=== PATIENT | female | born 2000 | race Caucasian/White ===

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

== ENCOUNTER 2023-01-28 07:57 | Emergency (ER) | payer OTHER ==
[~2023-01-28] VITALS: Ht 165.1 cm; Wt 61.2 kg
[~2023-01-28 07:57] MED LIST: ISENTRESS400 MG PO; TRUVADA 200 MG1 EACH PO; ZOFRAN4 MG PO
[2023-01-28] MEDS ORDERED: PROPRANOLOL HCL10 MG PO (08:10)
[2023-01-28 08:35] LABS: BILIRUBIN, URINE NEGATIVE (negative); BLOOD/HGB, URINE SMALL (Negative); KETONE, URINE NEGATIVE (Negative); LEUK ESTERASE, URINE TRACE (negative); NITRITE, URINE NEGATIVE (negative)
[2023-01-28 08:43] LABS: BACTERIA, URINE 1+ /hpf (negative); CASTS, URINE NONE SEEN \\lpf; COLLECTION TYPE, URINE CLEAN CATCH; CRYSTALS, URINE NONE SEEN (0-1+); EPITHELIAL CELLS, URINE SQUAMOUS 3+ /lpf (0-1+); RED BLOOD CELLS, URINE 0-1 /hpf (0-5); REFLEX CULTURE, URINE No (No)
[2023-01-28 08:45] LABS: BASOPHILS 0.9 % (0-2); EOSINOPHILS 2.5 % (0-6); HEMATOCRIT 36.3 % (35.0-50.0); HEMOGLOBIN 12.2 g/dL (12.0-18.0); LYMPHOCYTES 28.4 % (24-44); MCHC 33.6 g/dl (30-36); MCV 86.3 fl (81-99); MONOCYTES 10.5 % (0-12); NEUTROPHILS 57.7 % (39-80); PLATELET COUNT 190 K/uL (140-440); RDW 12.8 (10.5-15.0)
[2023-01-28 09:04] LABS: ALBUMIN 3.7 g/dL (3.4-5.0); ALBUMIN/GLOBULIN RATIO 1.19 (1.1-2.4); ANION GAP 16.5 (7-21); BILIRUBIN, TOTAL 0.2 ng/dL (0.2-1.0); BUN/CREATININE RATIO 8.92 (6.0-28.6); CREATININE, SERUM 0.56 mg/dL (0.55-1.02); POTASSIUM 3.5 mmol/L (3.5-5.1); PROTEIN, TOTAL 6.8 g/dL (6.4-8.2)
[2023-01-28 09:18] LABS: ABO A; RH POSITIVE
[2023-01-28 09:19] LABS: ANTIBODY SCREEN NEGATIVE
[2023-01-28] MEDS ORDERED: FOLIC ACID1 MG PO (11:38)
[2023-01-28 11:49] VITALS: BP 95/81
== END 2023-01-28 11:49 | disposition home or self-care (01) ==
LOC: ED 07:57
PROVIDERS: Internal Medicine
DX: O46.91 Antepartum hemorrhage, unspecified, first trimester (principal); Z3A.01 Less than 8 weeks gestation of pregnancy
CPT/HCPCS: 36415; 76801; 76817; 80053; 81001; 84702; 85025; 86850; 86900; 86901; 96374; 99284-25; J2405

== ENCOUNTER 2023-06-07 12:36 | Emergency (ER) | payer OTHER ==
[~2023-06-07] VITALS: Ht 165.1 cm; Wt 62.1 kg
[~2023-06-07 12:36] MED LIST changes: +FOLIC ACID1 MG PO; +PROPRANOLOL HCL10 MG PO
[2023-06-07 13:32] LABS: BILIRUBIN, URINE NEGATIVE (negative); BLOOD/HGB, URINE NEGATIVE (Negative); KETONE, URINE NEGATIVE (Negative); LEUK ESTERASE, URINE MODERATE (negative); NITRITE, URINE NEGATIVE (negative)
[2023-06-07 13:43] LABS: RED BLOOD CELLS, URINE 0-1 /hpf (0-5)
[2023-06-07 13:44] LABS: BACTERIA, URINE 2+ /hpf (negative); CASTS, URINE NONE SEEN \\lpf; CRYSTALS, URINE NONE SEEN (0-1+)
[2023-06-07 13:46] LABS: COLLECTION TYPE, URINE CLEAN CATCH; REFLEX CULTURE, URINE No (No)
[2023-06-07] MEDS ORDERED: MACROBID 100 M100 MG PO (13:56)
[2023-06-07 14:00] VITALS: BP 118/72
== END 2023-06-07 14:00 | disposition home or self-care (01) ==
LOC: ED 12:36
PROVIDERS: Emergency Medicine
DX: O23.42 Unspecified infection of urinary tract in pregnancy, second trimester (principal); N39.0 Urinary tract infection, site not specified; Z3A.25 25 weeks gestation of pregnancy
CPT/HCPCS: 81001; 87088; 99284

== ENCOUNTER 2023-08-28 06:15 | Inpatient (IN) | payer OTHER ==
[~2023-08-28] VITALS: Ht 162.6 cm; Wt 69.9 kg
[~2023-08-28 06:15] MED LIST changes: +CALCIUM CARBONATE 500 MG CHEW PO PRN; +LACTATED RINGER'S 1,000 ML IV SCH; +MACROBID 100 M100 MG PO; +MAGNESIUM HYDROXIDE/AL HYDROX 30 ML CUP PO PRN; +miSOPROStoL 25 MCG TAB PV SCH
[2023-08-28] MEDS ORDERED: OXYTOCIN/DEXTROSE 5% 20 UNITS/100 ML BAG IV SCH (06:30)
[2023-08-28 06:53] LABS: HEMATOCRIT 33.9 % (35.0-50.0); HEMOGLOBIN 11.6 g/dL (12.0-18.0); MCH 29.6 (27-36); MCHC 34.1 g/dl (30-36); MCV 86.8 fl (81-99); RBC 3.91 M/ul (4.3-5.7); RDW 13.6 (10.5-15.0)
[2023-08-28 06:56] VITALS: BP 114/73
[2023-08-28 07:16] LABS: AMPHETAMINES, URINE NEGATIVE (NEGATIVE); BARBITURATES, URINE NEGATIVE (NEGATIVE); BENZODIAZEPINE, URINE NEGATIVE (NEGATIVE); BUPRENORPHINE, URINE NEGATIVE (NEGATIVE); CANNABINOID, URINE POSITIVE (NEGATIVE); COCAINE, URINE NEGATIVE (NEGATIVE); ECSTASY, URINE NEGATIVE (NEGATIVE); FENTANYL, URINE NEGATIVE (NEGATIVE); METHADONE, URINE NEGATIVE (NEGATIVE); OPIATES, URINE NEGATIVE (NEGATIVE); OXYCODONE, URINE NEGATIVE (NEGATIVE); PHENCYCLIDINE, URINE NEGATIVE (NEGATIVE)
[2023-08-28 07:27] LABS: ABO A; ANTIBODY SCREEN NEGATIVE; RH POSITIVE
[2023-08-28] MEDS ORDERED: ROPIVACAINE 0.2% 200 ML BAG ONE (10:00)
[2023-08-28] MEDS ORDERED: ondansetron HCL 4 MG/2 ML VIAL IV ONE (10:15)
[2023-08-28] MEDS ORDERED: LACTATED RINGER'S 2,000 ML IV ONE (10:45)
[2023-08-28] MEDS ORDERED: LACTATED RINGER'S 500 ML IV PRN (10:45)
[2023-08-28] MEDS ORDERED: ROPIVACAINE 0.2% 200 ML BAG EPIDURAL SCH (10:45)
[2023-08-28] MEDS ORDERED: ePHEDrine sulfate 5 MG/ML SYRINGE IV PRN (10:45)
--- NOTE | 2023-08-28 11:04 | PR ---
[facility] [address] [facility] [place], [place] [address] Signed Progress Notes IP Datetime Report Generated by YOSHI: 08/28/2023 11:04 PROGRESS NOTES: [id number] Impression: Normal Progression of Labor Procedures: Sterile Vag Exam Plan: Continue Present Management VITAL SIGNS: [id number] Vital Signs: Reviewed; Within Normal Limits EXAM: [id number] Dilatation: 9.0 Effacement: 100 Station: 0 Contractions: q 2 to 3 min MEMBRANES: [id number] Membranes Status: Intact Comments: Progressing well FETUS A: [id number] FHR Baseline: 130 Variability: Moderate 6-25bpm Accelerations: 15X15 Decelerations: None FHR Category: Category II Presentation: Vertex Comments on Fetus A: No signs of metabolic acidosis FETUS B: [id number] Signing Physician: Lurdes Grady MD Copies: ~ *Electronically Signed* 08/28/23 1104 LURDES GRADY MD PATIENT NAME: JOSÉ MANUEL LONDON PROGRESS NOTE DATE OF : 01 PHYSICIAN: LURDES GRADY MD RPT #: [id number] REPORT IS CONFIDENTIAL AND NOT TO BE RELEASED WITHOUT AUTHORIZATION
[2023-08-28] MEDS ORDERED: VARICELLA VACCINE LIVE/PF 0.5 ML VIAL SUB-Q SCH (12:00)
[2023-08-28] MEDS ORDERED: ACETAMINOPHEN 325 MG TAB PO PRN (12:00)
[2023-08-28] MEDS ORDERED: OXYTOCIN/0.9 % SODIUM CHLORIDE 500 ML IV SCH (12:00)
[2023-08-28] MEDS ORDERED: WITCH HAZEL/GLYCERIN 1 EA PAD TOP PRN (12:00)
[2023-08-28] MEDS ORDERED: HYDROCORTISONE ACETATE 25 MG SUPP PR PRN (12:00)
[2023-08-28] MEDS ORDERED: CALCIUM CARBONATE 500 MG CHEW PO PRN (12:00)
[2023-08-28] MEDS ORDERED: IBUPROFEN 600 MG TAB PO PRN (12:00)
[2023-08-28] MEDS ORDERED: MAGNESIUM HYDROXIDE/AL HYDROX 30 ML CUP PO PRN (12:00)
[2023-08-28] MEDS ORDERED: MAGNESIUM HYDROXIDE 30 ML UDC PO PRN (12:00)
[2023-08-28] MEDS ORDERED: HYDROCODONE/ACETA 5/325 TAB PO PRN (12:00)
[2023-08-28] MEDS ORDERED: BENZOCAINE 60 ML AEROSOL TOP PRN (12:00)
[2023-08-28] MEDS ORDERED: LIDOCAINE 2% VISCOUS 6 ML SYR TOP ONE ×2 (12:00)
[2023-08-28] MEDS ORDERED: SENNOSIDES/DOCUSATE 1 EA TAB PO SCH (21:00)
[2023-08-29 05:20] LABS: HEMATOCRIT 28.1 % (35.0-50.0); HEMOGLOBIN 9.9 g/dL (12.0-18.0); MCH 30.4 (27-36); MCHC 35.3 g/dl (30-36); RBC 3.27 M/ul (4.3-5.7); RDW 13.5 (10.5-15.0)
--- NOTE | 2023-08-29 07:19 | PR ---
[facility] [address] [facility] [place] [address] Signed PP Progress Notes Datetime Report Generated by YOSHI: 08/29/2023 07:19 SUBJECTIVE: [id number] Pain: Within Normal Limits Vital Signs: [id number] Vital Signs: Reviewed; Within Normal Limits Cardiovascular: Not Done Respiratory: Not Done Abdomen/Uterus: Abnormal Lochia: Normal Vulva/Perineum: Not Done Breasts: Not Done CVA Tenderness: Not Done Extremities: Normal Incision: Not Applicable Progress: Normal Exam Comments: Fundus firm, NT @ U-3. H/H 9.9/28.1, WBC 10, Plat 176k IMPRESSION/PLAN/PROCEDURES: [id number] Impression: Normal Progression Plan: Continue Present Management Progress Notes: Doing well. Will continue present care with probable discharge tomorrow. Signing Physician: Lurdes Grady MD Copies: ~ *Electronically Signed* 08/29/23718 LURDES GRADY MD PATIENT NAME: JOSÉ MANUEL LONDON PROGRESS NOTE DATE OF : 01 PHYSICIAN: LURDES GRADY MD RPT #: [id number] REPORT IS CONFIDENTIAL AND NOT TO BE RELEASED WITHOUT AUTHORIZATION
--- NOTE | 2023-08-30 11:19 | PR ---
[facility] [address] [facility] [place], [place] [address] Signed PP Progress Notes Datetime Report Generated by YOSHI: 08/30/2023 11:19 SUBJECTIVE: [id number] Pain: Within Normal Limits Vital Signs: [id number] Vital Signs: Reviewed; Within Normal Limits Cardiovascular: Not Done Respiratory: Not Done Abdomen/Uterus: Abnormal Lochia: Normal Vulva/Perineum: Not Done Breasts: Not Done CVA Tenderness: Not Done Extremities: Normal Incision: Not Applicable Progress: Normal Exam Comments: Fundus firm, NT @ U-3. IMPRESSION/PLAN/PROCEDURES: [id number] Impression: Normal Progression Other Impression: depression/anxiety Plan: Discharge Other Procedures: Varicella Progress Notes: Doing well overall but she did score quite high on the depression score. She has previously used sertraline and is amenable to trying this again. She is ready for discharge. Signing Physician: Lurdes Grady MD Copies: ~ *Electronically Signed* 08/30/23 1119 LURDES GRADY MD PATIENT NAME: JOSÉ MANUEL LONDON PROGRESS NOTE DATE OF : 01 PHYSICIAN: LURDES GRADY MD RPT #: [id number] REPORT IS CONFIDENTIAL AND NOT TO BE RELEASED WITHOUT AUTHORIZATION
== END 2023-08-30 15:45 | disposition home or self-care (01) | DRG 806 ==
LOC: FBC 06:15 → MS 08-29 10:50 → FBC 08-29 10:59
PROVIDERS: ADMIT Obstetrics & Gynecology; ATTEND Obstetrics & Gynecology
PROC: 10E0XZZ Delivery of Products of Conception, External Approach (ICD-10-PCS; principal; 2023-08-28)
PROC: 0KQM0ZZ Repair Perineum Muscle, Open Approach (ICD-10-PCS; 2023-08-28)
PROC: 3E0R3BZ Introduction of Anesthetic Agent into Spinal Canal, Percutaneous Approach (ICD-10-PCS; 2023-08-28)
PROC: 00HU33Z Insertion of Infusion Device into Spinal Canal, Percutaneous Approach (ICD-10-PCS; 2023-08-28)
PROC: 10907ZC Drainage of Amniotic Fluid, Therapeutic from Products of Conception, Via Natural or Artificial Opening (ICD-10-PCS; 2023-08-28)
DX: O62.3 Precipitate labor (principal); O99.324 Drug use complicating childbirth; Z37.0 Single live birth; Z3A.37 37 weeks gestation of pregnancy; O70.1 Second degree perineal laceration during delivery; O36.5930 Maternal care for other known or suspected poor fetal growth, third trimester, not applicable or unspecified; F12.90 Cannabis use, unspecified, uncomplicated
CPT/HCPCS: 01960; 36415; 80307; 85027; 86850; 86900; 86901; 90716; A9270; J2590